=== PATIENT | female | born 2005 | race Caucasian/White ===

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

== ENCOUNTER → 2024-03-10 | Outpatient (CLI) | payer OTHER | LOC: M RAD 07:56 | PROVIDERS: ATTEND Registered Nurse | DX: R11.0 Nausea (principal); R10.11 Right upper quadrant pain; K31.84 Gastroparesis | CPT/HCPCS: 78264; A9541 ==

== ENCOUNTER → 2024-04-07 | Outpatient (CLI) | payer OTHER ==
[2024-04-07 15:49] LABS: HEMATOCRIT 39.5 % (36.0-47.0); HEMOGLOBIN 12.4 g/dl (12.0-15.5); MEAN CORPUSCULAR HEMOGLOBIN 24.1 pg (27.0-33.0); MEAN CORPUSCULAR HGB CONC 31.4 g/dl (32.0-36.5); MEAN CORPUSCULAR VOLUME 76.7 fl (80.0-96.0); PLATELET COUNT, AUTOMATED 330 10^3/uL (150-450); RED BLOOD COUNT 5.15 10^6/uL (4.00-5.40)
[2024-04-07 17:00] LABS: HEPATITIS C VIRUS ABY INDEX < 0.02 INDEX (<0.8)
== END ==
LOC: M LAB 14:49
PROVIDERS: ATTEND Internal Medicine Gastroenterology
DX: E66.9 Obesity, unspecified (principal); K76.0 Fatty (change of) liver, not elsewhere classified; R10.11 Right upper quadrant pain; R11.2 Nausea with vomiting, unspecified; R79.89 Other specified abnormal findings of blood chemistry; D72.829 Elevated white blood cell count, unspecified

== ENCOUNTER → 2024-06-08 | Outpatient (CLI) | payer OTHER ==
[2024-06-08 16:02] LABS: FREE T3 3.9 PG/ML (3.0-4.7); FREE T4 1.17 NG/DL (0.83-1.43); THYROID STIMULATING HORMONE 1.285 uIU/ML (0.48-4.17); TOTAL T3 145.7 NG/DL (86.0-192.0)
[2024-06-08 16:03] LABS: THYROID PEROXIDASE ANTIBODY < 28.0 U/ML (<60.0)
== END ==
LOC: M PLALAB 12:27
PROVIDERS: ATTEND Advanced Practice Midwife
DX: N92.6 Irregular menstruation, unspecified (principal)

== ENCOUNTER → 2024-12-21 | Outpatient (CLI) | payer OTHER ==
[2024-12-21 17:45] LABS: BASO # 0.1 10^3/uL (0.0-0.2); BASO % 0.6 % (0.0-1.0); EOS # 0.2 10^3/uL (0.0-0.5); EOS % 2.3 % (0.0-3.0); LYMPH # 2.7 10^3/uL (1.5-5.0); LYMPH % 30.7 % (24.0-44.0); MONO # 0.6 10^3/uL (0.0-0.8); MONO % 7.2 % (2.0-8.0); NEUTROPHILS # 5.1 10^3/uL (1.5-8.5); NEUTROPHILS % 59.0 % (36.0-66.0); PLATELET COUNT, AUTOMATED 368 10^3/uL (150-450)
[2024-12-21 17:55] LABS: C REACTIVE PROTEIN QUANTITATIV 0.52 MG/DL (<1.0); ERYTHROCYTE SEDIMENTATION RATE 42 mm/hr (0-20)
[2024-12-21 17:57] LABS: FREE T4 1.13 NG/DL (0.83-1.43)
== END ==
LOC: M LAB 16:22
PROVIDERS: ATTEND Registered Nurse
DX: K31.84 Gastroparesis (principal); R11.2 Nausea with vomiting, unspecified; R19.4 Change in bowel habit

== ENCOUNTER → 2024-12-22 | Outpatient (REF) | payer OTHER ==
[2024-12-26 19:22] LABS: PANCREATIC ELASTASE STOOL > 800 mcg/g (>200)
[2024-12-29 17:57] LABS: CALPROTECTIN STOOL < 5 mcg/g (<50)
== END ==
LOC: M LAB REF 10:55
PROVIDERS: ATTEND Registered Nurse
DX: N92.6 Irregular menstruation, unspecified (principal); E66.01 Morbid (severe) obesity due to excess calories

== ENCOUNTER → 2025-01-01 | Outpatient (REF) | payer OTHER | LOC: M LAB REF 11:51 | PROVIDERS: ATTEND Student in an Organized Health Care Education/Training Program | DX: J06.9 Acute upper respiratory infection, unspecified (principal) ==

== ENCOUNTER → 2025-02-02 | Outpatient (CLI) | payer OTHER ==
[2025-02-05 14:16] LABS: F001-IGE EGG WHITE < 0.10 kU/L (<0.10); F002-IGE MILK 0.20 kU/L (<0.10); F003-IGE CODFISH < 0.10 kU/L (<0.10); F024-IGE SHRIMP < 0.10 kU/L (<0.10); F040-IGE TUNA < 0.10 kU/L (<0.10); F041-IGE SALMON < 0.10 kU/L (<0.10); F075-IGE EGG YOLK < 0.10 kU/L (<0.10); F202-IGE CASHEW NUT < 0.10 kU/L (<0.10); F256-IGE WALNUT < 0.10 kU/L (<0.10)
[2025-02-07 18:07] LABS: F007-IGE OAT <0.10 kU/L (Class 0); F009-IGE RICE <0.10 kU/L (Class 0); F023-IGE CRAB <0.10 kU/L (Class 0); F025-IGE TOMATO <0.10 kU/L (Class 0); F037-IGE MUSSEL <0.10 kU/L (Class 0); F044-IGE STRAWBERRY <0.10 kU/L (Class 0); F049-IGE APPLE <0.10 kU/L (Class 0); F076-IGE ALPHA LACTALBUMIN <0.10 kU/L (Class 0); F077-IGE LACTOGLOBULIN, BETA <0.10 kU/L (Class 0); F078-IGE CASEIN <0.10 kU/L (Class 0); F080-IGE LOBSTER <0.10 kU/L (Class 0); F083-IGE CHICKEN <0.10 kU/L (Class 0); F092-IGE BANANA <0.10 kU/L (Class 0); F236-IGE WHEY 0.22 kU/L (Class 0/I); F269 IGE BASIL <0.10 kU/L (Class 0); F278-IGE BAYLEAF (LAUREL) <0.10 kU/L (Class 0); F284-IGE TURKEY <0.10 kU/L (Class 0); F290-IGE OYSTER <0.10 kU/L (Class 0); F338-IGE SCALLOP <0.10 kU/L (Class 0)
== END ==
LOC: M LAB 16:37
PROVIDERS: ATTEND Nurse Practitioner Family
DX: Z91.018 Allergy to other foods (principal)

== ENCOUNTER → 2025-02-17 | Outpatient (CLI) | payer OTHER ==
[2025-02-17 09:48] LABS: BASO # 0.1 10^3/uL (0.0-0.2); BASO % 0.6 % (0.0-1.0); EOS # 0.5 10^3/uL (0.0-0.5); EOS % 4.2 % (0.0-3.0); LYMPH # 3.7 10^3/uL (1.5-5.0); LYMPH % 34.2 % (24.0-44.0); MONO # 0.8 10^3/uL (0.0-0.8); MONO % 7.0 % (2.0-8.0); NEUTROPHILS # 5.9 10^3/uL (1.5-8.5); NEUTROPHILS % 53.6 % (36.0-66.0); PLATELET COUNT, AUTOMATED 364 10^3/uL (150-450)
[2025-02-17 10:17] LABS: ALT/SGPT 38 U/L (7.0-40); AST/SGOT 24 U/L (<34); CALCIUM LEVEL 8.7 MG/DL (8.5-10.1); CARBON DIOXIDE LEVEL 27 MMOL/L (20-31); CHLORIDE LEVEL 105 MMOL/L (98-107); CHOLESTEROL LEVEL 204 MG/DL (<200); CHOLESTEROL RISK RATIO 3.73 (<5); CREATININE FOR GFR 0.72 MG/DL (0.55-1.30); FREE T4 1.16 NG/DL (0.83-1.43); GLOMERULAR FILTRATION RATE > 90.0 (>60); LDL CHOLESTEROL 117.4 MG/DL (<100); NON-HDL-C 149.4 MG/DL; POTASSIUM SERUM 4.4 MMOL/L (3.5-5.1); SODIUM LEVEL 139 MMOL/L (136-145); TRIGLYCERIDES LEVEL 160 MG/DL (<150)
[2025-02-17 10:22] LABS: ESTIMATED AVERAGE GLUCOSE 103.0 MG/DL (60-110)
== END ==
LOC: M LAB 09:06
PROVIDERS: ATTEND Family Medicine
DX: Z13.29 Encounter for screening for other suspected endocrine disorder (principal); Z13.220 Encounter for screening for lipoid disorders; Z13.0 Encounter for screening for diseases of the blood and blood-forming organs and certain disorders involving the immune mechanism

== ENCOUNTER → 2025-03-16 | Outpatient (REF) | payer OTHER ==
[~2025-03-16] MED LIST: ALBU8.5H; BETA0.0543; CEFD1CAP9 PO; DUPI300P; FERR325T19; HYDR1CAP25 PO; LORY1TAB2; ONDA-282; PRED20TA PO; VITA500T9
== END ==
LOC: M LAB REF 14:24
DX: J06.9 Acute upper respiratory infection, unspecified (principal)

== ENCOUNTER 2025-03-18 18:48 | Emergency (ER) | payer OTHER ==
[~2025-03-18] VITALS: Ht 157.5 cm; Wt 109.0 kg
[2025-03-18] MEDS ORDERED: HYDR1CAP25 PO (19:04)
[2025-03-18] MEDS ORDERED: PRED20TA PO (19:04)
[2025-03-18] MEDS ORDERED: LORY1TAB2 (19:04)
[2025-03-18] MEDS ORDERED: CEFD1CAP9 PO (19:04)
[2025-03-18] MEDS ORDERED: DUPI300P (19:04)
[2025-03-18] MEDS ORDERED: VITA500T9 (19:04)
[2025-03-18] MEDS ORDERED: ALBU8.5H (19:04)
[2025-03-18] MEDS ORDERED: FERR325T19 (19:04)
[2025-03-18] MEDS ORDERED: ONDA-282 (19:04)
[2025-03-18] MEDS ORDERED: BETA0.0543 (19:05)
[2025-03-18 21:30] VITALS: BP 145/67; TEMP 98; O2SAT 98
[2025-03-18] MEDS: IPRATROPIUM 0.5 MG/ALBUTEROL 2.5 MG INH SOL UD 3 ML NEB ONE (21:42)
== END 2025-03-18 21:53 | disposition home or self-care (01) ==
LOC: M ED 18:48
DX: J20.9 Acute bronchitis, unspecified (principal); Z88.0 Allergy status to penicillin; Z88.1 Allergy status to other antibiotic agents; Z88.8 Allergy status to other drugs, medicaments and biological substances; Z91.018 Allergy to other foods; Z79.51 Long term (current) use of inhaled steroids; Z79.2 Long term (current) use of antibiotics; Z79.899 Other long term (current) drug therapy; Z79.52 Long term (current) use of systemic steroids